=== PATIENT | female | born 1995 | race Caucasian/White ===

== ENCOUNTER → 2017-02-19 | Outpatient (CLI) | payer OTHER ==
--- NOTE | 2017-02-19 13:31 | Diagnostic Imaging Report ---
EXAMINATION: MRI thoracic spine without contrast. INDICATION: Back pain. TECHNIQUE: Multiplanar images utilizing both T1- and T2-weighted sequences were obtained. FINDINGS: The previous MRI thoracic spine exam performed on 03/28/2016 noted a disc bulge centrally at T8-9. The disc compressed the ventral aspect of the thecal sac and narrowed the AP diameter to approximately 8.6 mm. On this study, the disc bulge is again evident. The AP diameter of the thecal sac at this level now measures approximately 9.3 mm. The previous study also identified a paracentral disc herniation to the right. That finding is again evident and does not appear to have changed significantly. The disc compresses the right ventral aspect of the thecal sac resulting in mild central stenosis. The disc is also in proximity to the origin of the exiting right nerve root. The remainder of the thoracic spine is unremarkable for spinal stenosis or nerve root encroachment. There is no abnormal signal arising from the osseous structures to suggest bone edema or a fracture. The cord is unremarkable as well. The lobulated cystic mass along the inferior pole of the left lobe of the thyroid seen previously is again evident and no different. The thyroid ultrasound exam of 04/03/2016 noted a complex 3.1 x 1.6 x 1.9 cm nodule in this area. Reportedly, this nodule was biopsied using ultrasound guidance on the same day. The results of the biopsy are not known to me. The I-123 thyroid uptake scan performed on 05/30/2016 failed to show any sign of a cold nodule along the inferior pole of the left lobe of the thyroid. IMPRESSION: 1. The disc bulge at the T8-9 level seen previously is slightly less prominent on this study. The right paracentral disc herniation at T9-10 seen previously is no different. The remainder of the thoracic spine is stable when compared to the prior study. No new area of spinal stenosis or nerve root encroachment has developed. 2. There is no sign of an acute bony abnormality or of a cord lesion. 3. The complex nodule along the inferior pole of the left lobe of the thyroid seen previously is again evident. Correlation with the patient's biopsy results would be recommended. Dictated by: Dictated on workstation # [id number]
== END ==
LOC: RAD 10:27
PROVIDERS: ATTEND Nurse Practitioner Family
DX: M51.24 Other intervertebral disc displacement, thoracic region (principal); E04.1 Nontoxic single thyroid nodule
CPT/HCPCS: 72146

== ENCOUNTER → 2017-05-13 | Outpatient (CLI) | payer OTHER ==
--- NOTE | 2017-05-13 11:17 | Diagnostic Imaging Report ---
TECHNIQUE: A multiplanar/multisequence MRI of the thoracic spine was performed without intravenous contrast. INDICATION: Back pain. FINDINGS: The alignment of the thoracic vertebra is satisfactory. The vertebral body heights are preserved. The disc heights are also preserved. There is mild disc desiccation at the T8-9, T9-10, and T10-11 levels. The bone marrow signal is generally normal with no suspicious focal lesion seen. The spinal cord has normal caliber, contour, and signal. At T8-9, there is a cranially migrated central disc extrusion along the lower two/thirds of the T8 vertebral body. It is associated with mild to moderate spinal canal stenosis reducing the AP dimension of the canal to 8.2 mm without cord compression, however. At T9-10, there is a right posterolateral disc protrusion with no significant spinal canal stenosis seen. No cord compression. Minimal disc herniation at T10-11 is seen with no spinal canal stenosis. The foramina are patent at all levels. IMPRESSION: There is a disc extrusion at the T8-9 level with cranial migration along the lower two/thirds of the T8 vertebral body associated with mild to moderate spinal canal stenosis. No cord compression. Dictated by: Dictated on workstation # [id number]
--- NOTE | 2017-05-13 11:38 | Diagnostic Imaging Report ---
PROCEDURE: MRI lumbar spine. TECHNIQUE: Multiplanar, multisequence MRI of the lumbar spine was performed without contrast. IMPRESSION: Low back pain. FINDINGS: The alignment of the lumbar spine is satisfactory. The vertebral body heights are preserved. Disc heights are also preserved. There is no disc desiccation or disc height loss seen. No significant marrow signal abnormality is seen. The cauda equina and conus medullaris appear grossly unremarkable. There is minimal facet hypertrophy around the mid lumbar spine levels from L2-L3 to L4-L5 levels with no significant disc herniation at any level. No central canal, lateral recess or foramina stenosis at any level. IMPRESSION: There is mild facet hypertrophy around the mid lumbar spine. No significant disc herniation at any level. No spinal canal or foramina stenosis at any level. Dictated by: Dictated on workstation # [id number]
== END ==
LOC: RAD 07:52
PROVIDERS: ATTEND Nurse Practitioner Family
DX: M51.24 Other intervertebral disc displacement, thoracic region (principal); M48.04 Spinal stenosis, thoracic region; M54.5 Low back pain
CPT/HCPCS: 72146; 72148